=== PATIENT | male | born 1950 | race Caucasian/White ===

== ENCOUNTER 2016-12-26 15:11 | Emergency (ER) | payer BC ==
[2016-12-26 14:08] LABS: BASOPHILS 0 %; EOSINOPHILS 0.3 %; EOSINOPHILS ABSOLUTE 0.01 10/3/uL (0.0-0.53); ER CBC TAT 0 Hrs 05 Mins; HEMATOCRIT 34.1 % (40.0-51.0); HEMOGLOBIN 11.5 g/dL (13.6-17.8); LYMPHOCYTES 16.7 %; LYMPHOCYTES ABSOLUTE 0.64 10/3/uL (0.67-4.30); MANUAL DIFF NO %; MEAN CORPUS HGB CONC 33.7 g/dL (32.0-36.0); MEAN CORPUSCULAR HEMOGLOB 31.5 pg (26.0-34.0); MEAN CORPUSCULAR VOLUME 93.4 fL (80-100); MEAN PLATELET VOLUME 10.3 fL (9.2-13.0); MONOCYTES ABSOLUTE 0.19 10/3/uL (0.21-1.20); NEUTROPHILS ABSOLUTE 2.99 10/3/uL (2.02-8.40); PLATELET COUNT 185 10/3/uL (150-400); RBC DISTRIBUTION WIDTH 15.2 % (12.0-16.0); RED CELL COUNT 3.65 10/6/uL (4.7-6.1); WHITE BLOOD CELLS 3.8 10/3/uL (4.5-10.5)
[2016-12-26 14:15] LABS: PROTIME (NOT ORD) 22.8 SEC (12.0-14.5)
[2016-12-26 14:16] LABS: PARTIAL THROMBO TIME 53.4 SEC (22.5-37.2)
[2016-12-26 14:18] LABS: CALCIUM, SERUM 8.4 MG/DL (8.5-10.4); CHLORIDE, SERUM 106 MMOL/L (96-112); GFR AFRICAN AMERICAN 56 ML/MIN (>=60); GFR NON AFRICAN AMERICAN 49 ML/MIN (>=60); GLUCOSE, SERUM 135 MG/DL (60-99); SODIUM, SERUM 140 MMOL/L (135-148)
[2016-12-26 14:19] LABS: BUN (BLOOD UREA NITROGEN) 25 MG/DL (6-23); CO2 (CARBON DIOXIDE) 33 MMOL/L (24-34)
[~2016-12-26 15:11] MED LIST: ALTA2.5 PO; ASAB PO; BEN25 PO; BETAPACE AF80 MG PO; C5 PO; CORDARONE PO; COZ25 PO; CRESTOR20 MG PO; CRESTOR40 MG PO; DIGITEK0.25 MG PO; ELIQUIS 5 MG TAB5 MG PO; FISH OIL PO; FISH-EPA1000 MG PO; FLECAINIDE150 MG PO; HALF81 PO; ISOSORB DIN30 MG PO; KLOR-CON 1010 MEQ PO; KLOR-CON M2020 MEQ PO; L20 PO; L40 PO; LAN125 PO; LIPITOR40 PO; PRILO PO; REST15 PO; SUCR PO; TAMBO50 PO; TOPXL100 PO; TOPXL50 PO; VITAMIN B-121000 MC1 SL; VITC500 PO
== END 2016-12-26 15:35 | disposition home or self-care (01) ==
LOC: ER 15:11
PROVIDERS: Nurse Practitioner Acute Care
DX: R60.0 Localized edema (principal); R79.1 Abnormal coagulation profile; I48.91 Unspecified atrial fibrillation; Z95.1 Presence of aortocoronary bypass graft; I12.9 Hypertensive chronic kidney disease with stage 1 through stage 4 chronic kidney disease, or unspecified chronic kidney disease; N18.9 Chronic kidney disease, unspecified; E11.22 Type 2 diabetes mellitus with diabetic chronic kidney disease; D63.1 Anemia in chronic kidney disease; Z88.0 Allergy status to penicillin; Z88.8 Allergy status to other drugs, medicaments and biological substances; Z79.82 Long term (current) use of aspirin; Z79.01 Long term (current) use of anticoagulants; Z79.899 Other long term (current) drug therapy
CPT/HCPCS: 80048; 85025; 85610; 85730; 93971; 99284